=== PATIENT | female | born 1975 | race Caucasian/White ===

== ENCOUNTER 2019-12-10 09:37 | Day surgery (SDC) | payer MEDICAID ==
[2019-12-10] MEDS ORDERED: FENTANYL PF 100MCG/2ML VIAL IV ONE (09:38)
[2019-12-10] MEDS ORDERED: LIDOCAINE 2% MDV (20MG/ML) 20ML VIAL IV ONE (09:38)
[2019-12-10] MEDS ORDERED: PROPOFOL 10 MG/ML VIAL IV ONE (09:38)
--- NOTE | 2019-12-11 09:11 | Operative Note ---
OPERATION: COLONOSCOPY to the cecum and terminal ileum. INDICATION: History of Crohn's disease involving the terminal ileum. The patient's last examination was in October 2014. Clinically she is doing well with Pentasa 2 g daily. ANESTHESIA: Intravenous sedation was administered by the department of anesthesiology and included Diprivan titrated to effect. PROCEDURE: Following informed consent from this alert individual including a discussion of the risks and benefits of the procedure and an opportunity for the patient to ask questions, the patient was in the left lateral decubitus position. A digital rectal examination was performed. No abnormalities were noted. Following this, the Olympus [id number] video colonoscope was inserted into the rectum without resistance. The rectal mucosa had a normal appearance with normal folds and distensibility. The colonoscope was advanced up through the colon to the level of the cecum without much difficulty. Throughout the bowel the mucosa appeared normal, the folds were normal, and the bowel was fairly well distensible. The cecum was defined by noting the appendiceal orifice and ileocecal valve. The colon preparation was good. The terminal ileum was cannulated and found to be unremarkable. There was only minimal if any erythema noted in a very mild patchy distribution. Again, essentially, the terminal ileum appeared to be normal. Biopsies were taken from the terminal ileum to rule out microscopic inflammatory change. The endoscope was then slowly withdrawn back through the bowel. No abnormalities were noted throughout the colon. Retroflexion in the rectum was endoscopically unremarkable. The instrument was straightened and removed. The patient tolerated the procedure well and was returned to the recovery area in stable condition. IMPRESSION: Unremarkable colonoscopy to the cecum and terminal ileum as described above. Biopsies taken from the terminal ileum. RECOMMENDATIONS: The patient will continue on her current medical regimen. Further recommendations will be forthcoming pending pathology. Followup will be with Herberth Esparza. As always, thank you for allowing me to participate in the care of your patient. JEANIE
--- NOTE | 2019-12-11 09:11 | Operative Note ---
OPERATION: ESOPHAGOGASTRODUODENOSCOPY with biopsy. INDICATION: History of chronic gastroesophageal reflux disease. The patient presents at this time for reevaluation. Clinically she is doing well provided she continues with omeprazole. ANESTHESIA: Intravenous sedation was administered by the department of anesthesiology and included Diprivan titrated to effect. PROCEDURE: Following informed consent from this alert individual, including a discussion of the risks and benefits of the procedure and an opportunity for the patient to ask questions, the patient was in the left lateral decubitus position. The Olympus [id number] video endoscope was inserted into the esophagus without resistance. The proximal esophagus had a normal appearance with normal folds and distensibility. The mid and distal esophagus likewise was free from abnormalities. The squamocolumnar junction approximated the diaphragmatic hiatus. There were no ulcerations, erosions, or esophagitis noted endoscopically. The stomach was entered and demonstrated a few gastric fundal polyps. Biopsy of a polyp was obtained. The remainder of the gastric mucosa was unremarkable. The pylorus was patent. The duodenal bulb, sweep and descending duodenum were examined in a serial fashion and found to be normal. The endoscope was then withdrawn back into the body of the stomach. Retroflexion accomplished following air insufflation failed to demonstrate any changes. The endoscope was straightened and withdrawn. The patient tolerated the procedure well and was returned to the recovery area in stable condition. IMPRESSION: Unremarkable esophagogastroduodenoscopy with the exception of gastric fundal polyps. Biopsies taken. No endoscopic evidence of esophagitis was noted. RECOMMENDATION: The patient could continue with acid blockade therapy as needed. She will be following up with Dr. Herberth Esparza as well. As always, thank you for allowing me to participate in the care of your patient. JEANIE
== END 2019-12-10 11:48 | disposition home or self-care (01) ==
LOC: HOP 09:37
PROVIDERS: ATTEND Internal Medicine Gastroenterology
DX: K50.00 Crohn's disease of small intestine without complications (principal); K21.9 Gastro-esophageal reflux disease without esophagitis; K04.01 Reversible pulpitis; D13.1 Benign neoplasm of stomach
CPT/HCPCS: 84703